=== PATIENT | female | born 2000 | race Caucasian/White ===

== ENCOUNTER → 2019-03-21 | Outpatient (CLI) | payer BC ==
--- NOTE | 2019-03-21 16:36 | Diagnostic Imaging Report ---
INDICATION: Cramping. Positive test. Spotting. COMPARISON: None. TECHNIQUE: Routine transpelvic and transvaginal sonogram was performed. FINDINGS: Uterus is anteverted and measures 8.9 cm in length x 4.3 cm in AP dimension x 5.9 cm transversely. Endometrial stripe measures 1 cm in thickness. Note is made of prominent subendometrial area of hypoechogenicity adjacent to the endometrial stripe anteriorly. No discrete focal uterine myometrial masses are seen. Additionally, there is no evidence of intrauterine . Visualized portions of cervix are unremarkable. Performing cancer center director notes area of poorly defined irregularity involving the right ovary of relative hyperechogenicity. Area in question measures 1.3 x 1.7 x 1.2 cm. Color flow images show peripheral vascularity to this area. No cystic foci of the right ovary are identified. Left ovary has a normal appearance and measures 2.1 x 2.2 x 2.4 cm. No other adnexal masses or free fluid are seen. IMPRESSION: 1. No evidence of intrauterine . 2. Subtle irregular area of the right ovary as described above. Findings could be on the basis of collapsed ovarian follicle or cyst. Definite ectopic cannot be excluded, but is felt to be less likely. Followup serial beta-hCG is advised. Additionally, short interval sonographic followup may be of benefit. 3. Prominent irregular hypoechogenicity adjacent to the endometrial stripe. Findings are nonspecific, but raise suspicion for potential adenomyosis. Dictated by: Dictated on workstation # [id number]
== END ==
LOC: RAD 14:45
PROVIDERS: ATTEND Nurse Practitioner Primary Care
DX: O26.851 Spotting complicating pregnancy, first trimester (principal); O26.891 Other specified pregnancy related conditions, first trimester; R10.2 Pelvic and perineal pain; Z3A.00 Weeks of gestation of pregnancy not specified
CPT/HCPCS: 76801; 76817

== ENCOUNTER 2019-04-02 13:44 | Outpatient (CLI) | payer BC ==
[2019-04-02] VITALS (9 sets, daily range): BP systolic 114–138; BP diastolic 71–89
[~2019-04-02] VITALS: Ht 160 cm; Wt 77.0 kg
[2019-04-02] MEDS ORDERED: BUPIVACAINE 0.25% 30 ML (SENSORCAINE) VIAL ONE (13:57)
[2019-04-02] MEDS ORDERED: LACTATED RINGERS 1,000 ML IV PRN (14:15)
[2019-04-02 14:27] LABS: BASOPHILS % (AUTO) 0 % (0-10); EOSINOPHILS # (AUTO) 0.1 10^3/uL (0.0-0.3); EOSINOPHILS % (AUTO) 1 % (0-10); HEMATOCRIT 43 % (35-52); HEMOGLOBIN 14.1 G/DL (11.5-16.0); LYMPHOCYTES # (AUTO) 2.1 X 10^3 (1.0-4.0); LYMPHOCYTES % (AUTO) 20 % (12-44); MEAN CORPUSCULAR HEMOGLOBIN 29 PG (25-34); MEAN CORPUSCULAR HGB CONC 33 G/DL (32-36); MEAN CORPUSCULAR VOLUME 89 FL (80-99); MEAN PLATELET VOLUME 9.6 FL (7.4-10.4); MONOCYTES # (AUTO) 0.7 X 10^3 (0.0-1.0); MONOCYTES % (AUTO) 6 % (0-12); NEUTROPHILS % (AUTO) 73 % (42-75); PLATELET COUNT 335 10^3/uL (130-400); RED CELL DISTRIBUTION WIDTH 13.2 % (10.0-14.5); WHITE BLOOD COUNT 10.9 10^3/uL (4.3-11.0)
[2019-04-02] MEDS ORDERED: fentaNYL INJECTION 100 MCG/2 ML AMP ONE (14:41)
[2019-04-02] MEDS ORDERED: MIDAZOLAM 2 MG/2 ML (VERSED) VIAL ONE (14:41)
[2019-04-02] MEDS ORDERED: D5 LR IV SOLUTION 1,000 ML IV SCH (14:43)
[2019-04-02] MEDS ORDERED: HYDROcodone/APAP 5 MG/325 MG (LORTAB) TAB PO PRN (14:45)
[2019-04-02] MEDS ORDERED: KETOROLAC 30 MG/ML VIAL IVP ONE (14:45)
[2019-04-02] MEDS ORDERED: ONDANSETRON 4 MG/2 ML (SDV) Z0FRAN IVP PRN ×2 (14:45→17:00)
--- NOTE | 2019-04-02 14:46 | History & Physical-Surgical ---
HPO-Surgical History of Present Illness Chief Complaint: Vaginal hemorrhage in early Diagnosis/Surgical Indication: Incomplete ab Procedure: Suction D and C Date of Surgery: Apr 02, 2019 Allergies and Home Medications Allergies Coded Allergies: No Known Drug Allergies (Unverified , 04/02/19) Patient Home Medication List Home Medication List Reviewed: Yes Past Teolxec-Muhgda-Bnhdqp Hx Patient Social History Marrital Status: single Employed/Student: student, full-time Alcohol Use: Denies Use Recreational Drug Use: No Smoking Status: Never a Smoker Recent Foreign Travel: No Contact w/other who traveled: No Exam Vital Signs Capillary Refill : Labs Laboratory Tests Test 04/02/19 14:15 Range/Units White Blood Count 10.9 4.3-11.0 10^3/uL Red Blood Count 4.81 4.35-5.85 10^6/uL Hemoglobin 14.1 11.5-16.0 G/DL Hematocrit 43 35-52 % Mean Corpuscular Volume 89 80-99 FL Mean Corpuscular Hemoglobin 29 25-34 PG Mean Corpuscular Hemoglobin Concent 33 32-36 G/DL Red Cell Distribution Width 13.2 10.0-14.5 % Platelet Count 335 130-400 10^3/uL Mean Platelet Volume 9.6 7.4-10.4 FL Neutrophils (%) (Auto) 73 42-75 % Lymphocytes (%) (Auto) 20 12-44 % Monocytes (%) (Auto) 6 0-12 % Eosinophils (%) (Auto) 1 0-10 % Basophils (%) (Auto) 0 0-10 % Neutrophils # (Auto) 8.0 H 1.8-7.8 X 10^3 Lymphocytes # (Auto) 2.1 1.0-4.0 X 10^3 Monocytes # (Auto) 0.7 0.0-1.0 X 10^3 Eosinophils # (Auto) 0.1 0.0-0.3 10^3/uL Basophils # (Auto) 0.0 0.0-0.1 10^3/uL General Appearance: Alert, Oriented X3 HEENT: Atraumatic Respiratory: Clear to Auscultation Cardiovascular: Regular Rate Abdominal: Normal Bowel Sounds Extremities: No Clubbing, No Cyanosis Skin: No Rashes Neuro: Normal Gait, Normal Speech Psych/Mental Status: Mental Status NL Assessment/Plan Admission Diagnosis 18 yo G1 @ 7 weeks by LMP Missed ab with vaginal hemorrhage Admission Status: Other (Same Day Surgery) ARCELIA OSORIO DO Apr 02, 2019 14:46
[2019-04-02] MEDS ORDERED: IBUP-1773 PO (14:48)
[2019-04-02] MEDS ORDERED: ACHD5005 PO (14:48)
--- NOTE | 2019-04-02 14:48 | Discharge Inst-Women's Service ---
Discharge Inst-Women's Serv Depart Medication/Instructions New, Converted or Re-Newed RX: RX on Chart Problems Reviewed?: Yes Consults/Follow Up Additional Follow Up: Yes Orders/Referrals Dr. Osorio in 2-3 weeks Activity Activity: Activity as Tolerated Driving Instructions: No Driving for 1 Week NO SMOKING: NO SMOKING Nothing Inside Vagina: No Douching, No [place], No Tampons Diet Discharge Diet: No Restrictions Symptoms to Report to : Bleeding Excessive, Pain Increased, Fever Over 101 Degrees F, Vaginal Bleeding Increase, Questions/Concerns ARCELIA OSORIO DO Apr 02, 2019 14:48
[2019-04-02] MEDS ORDERED: DEXAMETHASONE 10 MG/ML (DECADRON) 1 ML VIAL ONE (14:49)
[2019-04-02] MEDS ORDERED: ROCURONIUM 10 MG/ML 5 ML SYRINGE IV ONE (14:49)
[2019-04-02] MEDS ORDERED: SUCCINYLCHOLINE INJ 100 MG/5 ML SYR ONE (14:49)
[2019-04-02] MEDS ORDERED: ONDANSETRON 4 MG/2 ML (SDV) Z0FRAN ONE ×2 (14:49→15:32)
[2019-04-02] MEDS ORDERED: LIDOCAINE PF 2% 5 ML (XYLOCAINE) VIAL ONE (14:50)
[2019-04-02] MEDS ORDERED: proPOfol 200 MG/20 ML (DIPRIVAN) VIAL IV ONE (14:50)
[2019-04-02] MEDS ORDERED: MAGNESIUM PO (14:52)
[2019-04-02] MEDS ORDERED: METF-397 PO (14:52)
[2019-04-02] MEDS ORDERED: CITA10TA7 PO (14:52)
[2019-04-02] MEDS ORDERED: SEVOFLURANE (ULTANE) 15 ML INHAL SOLN ONE (15:04)
--- NOTE | 2019-04-02 15:41 | Anesthesia-General Post-Op ---
General Patient Condition Mental Status/LOC: Same as Preop Cardiovascular: Satisfactory Nausea/Vomiting: Absent Respiratory: Satisfactory Pain: Controlled Complications: Absent Post Op Complications Complications None Follow Up Care/Instructions Patient Instructions None needed. Anesthesia/Patient Condition Patient Condition Patient is doing well, no complaints, stable vital signs, no apparent adverse anesthesia problems. No complications reported per nursing. JESS ASIF CRNA Apr 02, 2019 15:41
--- NOTE | 2019-04-02 16:35 | NUR ---
LORTAB 5/325 MG, ONE TAB, GIVEN PO FOR C/O CRAMPY ABD PAIN RATED 2-3. TAKING PO FLUIDS AND CRACKERS WELL. HAS BEEN UP TO BR WITH ASSIST, VOIDED, GAIT STEADY.
[2019-04-02] MEDS ORDERED: morphine INJ 10 MG/ML 1ML (SYR OR VIAL) IVP ONE (17:00)
[2019-04-02] MEDS ORDERED: MEPERIDINE (DEMEROL) INJ 50 MG/ML IVP ONE (17:00)
--- NOTE | 2019-04-02 17:20 | NUR ---
PELVIC CRAMPY PAIN RATED 1-2. STATE SHE IS READY FOR DISMISSAL. CONTINUES TO HAVE ONLY SCANT AMOUNT OF BLOODY DRAINAGE TO V-PAD.
--- NOTE | 2019-04-02 19:50 | OPERATIVE REPORT ---
DATE OF SERVICE: 04/02/2019 PREOPERATIVE DIAGNOSES: 1. A 18-year-old at approximately 7 weeks' gestation. 2. Missed . 3. Severe vaginal bleeding. POSTOPERATIVE DIAGNOSES: 1. A 18-year-old at approximately 7 weeks' gestation. 2. Missed . 3. Severe vaginal bleeding. PROCEDURE PERFORMED: Suction D and C. SURGEON: Arcelia Osorio DO ANESTHESIA: General endotracheal. ESTIMATED BLOOD LOSS: 200 mL. URINE OUTPUT: 50 mL, clear during the procedure. FLUIDS: 1000 mL lactated Ringer's solution. FINDINGS: A grossly normal-appearing external female genitalia with small to moderate amount of products of conception. SPECIMEN SENT: Products of conception. INDICATIONS FOR PROCEDURE: This is a 18-year-old female patient who called my office urgently with heavy bleeding today. She was added on for a suction D and C due to confirmation last week with a very low serum progesterone level and a beta hCG level that was not rising appropriately. Also ultrasound confirmed gestational sac with no pole. I reviewed with the patient in the preoperative area to proceed with suction D and C. Risks of the procedure were discussed with the patient in detail including recovery time, possible need for reoperation. After all her questions were answered, consent was obtained in the preoperative area, the patient was taken to the operating room. OPERATIVE REPORT IN DETAIL: Once in the operating room, anesthesia was found to be adequate, placed in dorsal lithotomy position, prepped and draped in normal sterile fashion. A timeout was performed. A weighted speculum inserted to the patient's vagina. Right angle retractor was used to visualize the cervix, which was grasped at 12 o'clock position using a long [place] clamp. I then gently sound the uterine cavity and was found to be 8 cm. I dilated the cervix using Lashawn dilators to a maximum dilatation of approximately 8 mm at which point I selected a 7 cm rigid [place] suction curette. I advanced into the uterus and applied the [place] suction. It is activated and reaches a level of 55 mmHg, at which point I methodically cleared the endometrium of all products of conception on several passes. This was done until it was felt that the entirety of the had been removed, I then performed a gentle curetting of the endometrium after which there was minimal to scant bleeding noted. One final pass was made with the suction curette after which there was no bleeding noted. The [place] was removed. The weighted speculum was removed and the bladder was then emptied via a straight catheterization. The patient tolerated the procedure well and sent to recovery in stable condition. Lap and sponge counts were correct at the end of the procedure. Instrument counts correct as well. Job ID: [id number] DocumentID: [id number] Dictated Date: 04/02/2019 15:35:15 Supervisor Brine Date: 04/02/2019 19:49:32 Dictated By: ARCELIA OSORIO DO
== END 2019-04-02 17:20 | disposition home or self-care (01) ==
LOC: EDBD 13:44 → SDC 13:44
PROVIDERS: ATTEND Obstetrics & Gynecology
DX: Z01.818 Encounter for other preprocedural examination (principal); N93.8 Other specified abnormal uterine and vaginal bleeding
CPT/HCPCS: 36415; 84702; 85025; 87081

== ENCOUNTER 2021-05-09 04:06 | Emergency (ER) | payer OTHER ==
[~2021-05-09 04:06] MED LIST: ACHD5005 PO; CITA10TA7 PO; IBUP-1773 PO; MAGNESIUM PO; METF-397 PO
--- NOTE | 2021-05-09 04:17 | ED Abdominal Pain ---
General Stated Complaint: ABD PAIN Source of Information: Patient Exam Limitations: No Limitations History of Present Illness Date Seen by Provider: May 09, 2021 Time Seen by Provider: 04:12 Initial Comments 21yoF with PMH coming in due to epigastric burning started beginning of March. Episodes are intermittent. Went to [facility] about a week ago and was told she has gastritis. Given Pepcid and Carafate for this. Typically wakes her up at night when lying down. Worse with fast food. Started about 11pm tonight and goes from epigastric region upwards. Worse when lying flat. Typically goes away within 2-3 hours but today did not. She knows she needs to see a GI doctor, but she is from [facility], and her parents want to see if she can wait until June. Allergies and Home Medications Allergies Coded Allergies: No Known Drug Allergies (Unverified , 04/02/19) Patient Home Medication List Home Medication List Reviewed: Yes Citalopram Hydrobromide (Citalopram HBr) 10 Mg Tablet, 10 MG PO DAILY, (Reported) Entered as Reported by: CHAS CERVANTES on 04/02/19 145 Hydrocodone Bit/Acetaminophen (Lortab 5 Mg Tablet) 1 Tab Tab, 1 TAB PO Q4H PRN for PAIN-MODERATE Prescribed by: ARCELIA OSORIO on 04/02/19 1448 Ibuprofen (Ibuprofen) 600 Mg Tablet, 600 MG PO Q6H Prescribed by: ARCELIA OSORIO on 04/02/19 1448 Metformin HCl (Metformin HCl) 500 Mg Tablet, 500 MG PO DAILY, (Reported) Entered as Reported by: CHAS CERVANTES on 04/02/19 1452 Pantoprazole Sodium (Pantoprazole Sodium) 40 Mg Tablet.dr, 40 MG PO DAILY Prescribed by: ALEKSANDAR ALVARENGA on 05/09/21 0452 [Magnesium] Unknown Strength , Unknown Dose PO DAILY, (Reported) Entered as Reported by: CHAS CERVANTES on 04/02/19 1452 Review of Systems Review of Systems Constitutional: No chills, No fever EENTM: No Blurred Vision Respiratory: Denies Cough, Denies Shortness of Air Cardiovascular: Denies Chest Pain Gastrointestinal: Abdominal Pain; Denies Constipated, Denies Diarrhea, Denies Nausea, Denies Vomiting Genitourinary: Denies Discharge, Denies Frequency, Denies Flank Pain, Denies Hematuria Musculoskeletal: no symptoms reported Skin: no symptoms reported Psychiatric/Neurological: No Symptoms Reported Endocrine: No Symptoms Reported Hematologic/Lymphatic: No Symptoms Reported All Other Systems Reviewed Negative Unless Noted: Yes Past Xfgmyou-Mitqbg-Ecctpj Hx Seasonal Allergies Seasonal Allergies: No Past Medical History Surgeries: No Respiratory: No Cardiac: No Neurological: No Female Reproductive Disorders: Polycystic Ovarian Dis Genitourinary: No Gastrointestinal: No Musculoskeletal: No Endocrine: Yes (STATES SHE IS "PRE-DIABETIC") HEENT: No Cancer: No Psychosocial: Yes Anxiety, Depression Integumentary: No Blood Disorders: No Physical Exam Vital Signs Vital Signs - First Documented 05/09/21 04:20 Temp 36.5 Pulse 80 Resp 18 B/P (MAP) 140/103 (115) Pulse Ox 97 O2 Delivery Room Air Capillary Refill : Height/Weight/BMI Height: '" Weight: lbs. oz. kg; 30.07 BMI Method: General Appearance: WD/WN, no apparent distress HEENT: PERRL/EOMI, normal ENT inspection, pharynx normal Neck: non-tender, full range of motion, supple, normal inspection Respiratory: chest non-tender, lungs clear, normal breath sounds, no respiratory distress, no accessory muscle use Cardiovascular: regular rate, rhythm, no edema, no murmur Gastrointestinal: normal bowel sounds, non tender, soft; No distended, No gua rding, No rebound Extremities: normal range of motion, non-tender, normal inspection, no pedal edema, no calf tenderness, normal capillary refill Back: normal inspection, no CVA tenderness, no vertebral tenderness Neurologic/Psychiatric: no motor/sensory deficits, alert, normal mood/affect Skin: normal color, warm/dry Lymphatic: no adenopathy Progress/Results/Core Measures Results/Orders My Orders Orders - ALEKSANDAR ALVARENGA MD Antacid Suspension (Mylanta Suspension (05/09/21 04:44) Lidocaine 2% Viscous 15 Ml (Xylocaine Vi (05/09/21 04:44) Vital Signs/I&O 05/09/21 04:20 Temp 36.5 Pulse 80 Resp 18 B/P (MAP) 140/103 (115) Pulse Ox 97 O2 Delivery Room Air Progress Progress Note : Progress Note 41-year-old female with above history coming in due to epigastric burning pain going up her chest. ABCs were intact and vitals were stable on presentation. This has been ongoing for many months. She has no right upper quadrant tenderness on my exam, has a negative Ramos, and no signs of peritonitis on exam with a soft abdomen. No nausea or vomiting that would be concerning. Is having regular bowel movements. Pain somewhat improved after the Pepcid and Carafate, but it comes back at nighttime when she is lying flat and is more severe in those moments. No signs of pancreatitis on exam or cholecystitis. She is very young and this would be highly unlikely to be any type of atypical ACS. No lower abdominal tenderness at all it would be concerning for appendicitis, ovarian torsion, ectopic . No unusual discharge as well. She'll be given a GI cocktail, and we will encourage her to reach out to GI doctor sooner. On reassessment after the GI cocktail her pain essentially is completely gone. I will start her on a PPI given the symptoms sounds are classic. She was then discharged home in stable condition with strict return precautions Departure Impression Primary Impression: Epigastric pain Disposition: HOME, SELF-CARE Condition: Stable Departure-Patient Inst. Decision time for Depature: 04:49 Referrals: [facility] (PCP/Family) Primary Care Physician Patient Instructions: Ulcer and Gastritis Diet, Acid Reflux and Gastroesophageal Reflux Disease in Adults Add. Discharge Instructions: You were seen in the emergency department for pain in the middle upper part of your stomach. This is most likely related to acid and potentially ulcers in your stomach. I would recommend changing your famotidine to a medication called pantoprazole which is stronger. Continue to take the sucralfate as prescribed. I would also recommend buying [id number] Maalox and taking that when you have pain. Avoid medications like ibuprofen, naproxen, or aspirin. Tylenol is safe. You have any worsening pain either call your primary doctor or come back to the ER. I do recommend you call a GI doctor and get scheduled for an appointment as soon as possible. Scripts Pantoprazole Sodium (Pantoprazole Sodium) 40 Mg Tablet. 40 MG PO DAILY for 30 Days, #30 TAB Prov: ALEKSANDAR ALVARENGA MD 05/09/21 ALEKSANDAR ALVARENGA MD May 09, 2021 04:17
[2021-05-09] MEDS ORDERED: LIDOCAINE 2% VISCOUS 15 ML UDC PO STA (04:44)
[2021-05-09] MEDS ORDERED: ANTACID SUSP 30 ML UDC (MYLANTA) PO STA (04:44)
[2021-05-09] MEDS ORDERED: PANT40TA52 PO (04:52)
[2021-05-09 05:13] VITALS: BP 140/103
== END 2021-05-09 05:13 | disposition home or self-care (01) ==
LOC: EDUNIT# 04:06 → ER 04:11
DX: R10.13 Epigastric pain (principal); F41.9 Anxiety disorder, unspecified; F32.9 Major depressive disorder, single episode, unspecified; Z79.899 Other long term (current) drug therapy
CPT/HCPCS: 99283